=== PATIENT | female | born 1990 | race Caucasian/White ===

== ENCOUNTER 2018-07-10 00:05 | Emergency (ER) | payer SELFPAY ==
[~2018-07-10] VITALS: Ht 160 cm; Wt 65.8 kg
[2018-07-10 00:10] VITALS: BP 150/68
--- NOTE | 2018-07-10 00:10 | NUR ---
TO BED # 12 AMBULATORY
[2018-07-10] MEDS ORDERED: IBUPROFEN 800 MG TAB PO ONE (00:25)
--- NOTE | 2018-07-10 00:30 | NUR ---
28 YO F BIB SELF AND PRESENTS TO ED C/O 09/04 LOWER ABDOMINAL TENDERNESS X1 DAY. DENIES NVD OR CHANGE IN BOWEL HABITS. DENIES URINARY BURNING. -- ABD SOFT, FLAT, TENDER TO TOUCH. BOWEL SOUNDS PRESENT, ACTIVE. -- SKIN PINK, DRY, WARM. BREATHING EVEN, UNLABORED. -- LMP: 06/18/18 PMH-- DENIES RX-- TYLENOL FOR PAIN AT 1800
--- NOTE | 2018-07-10 01:18 | NUR ---
Ultrasound at bedside.
--- NOTE | 2018-07-10 01:19 | NUR ---
PT TAKEN TO ULTRASOUND
--- NOTE | 2018-07-10 01:32 | NUR ---
PT RETURNED FROM US.
[2018-07-10 02:16] VITALS: BP 105/67
== END 2018-07-10 02:16 | disposition home or self-care (01) ==
LOC: MED 00:05
DX: N83.201 Unspecified ovarian cyst, right side (principal); R03.0 Elevated blood-pressure reading, without diagnosis of hypertension
CPT/HCPCS: 76856; 81002; 81025; 99284

== ENCOUNTER 2021-05-02 07:18 | Emergency (ER) | payer MEDICAID ==
[~2021-05-02] VITALS: Ht 160 cm; Wt 77.1 kg
[2021-05-02 07:23] VITALS: BP 101/70
--- NOTE | 2021-05-02 07:28 | NUR ---
PT AMBULATED TO ER BED 5, PT GIVEN GOWN AND BLANKET
--- NOTE | 2021-05-02 08:16 | NUR ---
US AT PATIENT BEDSIDE.
[2021-05-02] MEDS: ACETAMINOPHEN 325 MG TAB PO ONE (08:37)
[2021-05-02] MEDS: FAMOTIDINE 20 MG TAB PO ONE (08:37)
--- NOTE | 2021-05-02 08:43 | NUR ---
LAB AT BEDSIDE FOR BLOOD DRAW
[2021-05-02 09:15] LABS: BASOPHILS % (AUTO) 0.7 % (0.0-2.0); EOSINOPHILS # (AUTO) 0.1 K/uL (0-0.4); EOSINOPHILS % (AUTO) 1.7 % (0.0-4.0); HEMATOCRIT 37.1 % (36-48); HEMOGLOBIN 12.6 g/dL (12.0-16.0); LYMPHOCYTES # (AUTO) 1.5 K/uL (2.5-16.5); MEAN CORPUSCULAR HEMOGLOBIN 30 pg (27-31); MEAN CORPUSCULAR HGB CONC 34 g/dL (33-37); MEAN CORPUSCULAR VOLUME 88.4 fL (80-94); MONOCYTES # (AUTO) 0.4 K/uL (0.8-1.0); NEUTROPHILS # (AUTO) 2.9 K/uL (1.8-7.7); NEUTROPHILS % (AUTO) 58.6 % (42.2-75.2); PLATELET COUNT (AUTO) 225 K/uL (140-450); RED CELL DISTRIBUTION WIDTH 13.2 % (11.6-13.7)
[2021-05-02 09:23] LABS: ALBUMIN 3.7 g/dL (3.4-5.0); ANION GAP 11.5 (8-16); CARBON DIOXIDE 26.1 mmol/L (21-32); CREATININE 0.6 mg/dL (0.6-1.3); POTASSIUM 3.6 mmol/L (3.5-5.1); TOTAL BILIRUBIN 0.2 mg/dL (0.0-1.0)
[2021-05-02] MEDS ORDERED: ACET-1195 PO (09:47)
[2021-05-02] MEDS ORDERED: FAMO-92 PO (09:47)
[2021-05-02 10:00] VITALS: BP 110/66
--- NOTE | 2021-05-02 10:00 | NUR ---
Patient discharged with v/s stable. Written and verbal after care instructions ABOUT GASTRITIS AND BILIARY COLIC given and explained. Patient alert, oriented and verbalized understanding of instructions. Ambulatory with steady gait. All questions addressed prior to discharge. ID band removed. Patient advised to follow up with PMD. Rx of ACETAMINOPHEN AND PEPCID given.
--- NOTE | 2021-05-02 10:01 | NUR ---
The patient's care was reviewed and supervised by Ayesha Thrasher RN.
== END 2021-05-02 10:00 | disposition home or self-care (01) ==
LOC: MED 07:18
DX: K80.20 Calculus of gallbladder without cholecystitis without obstruction (principal); K29.70 Gastritis, unspecified, without bleeding; M54.9 Dorsalgia, unspecified
CPT/HCPCS: 36415; 76705; 80053; 81002; 81025; 83690; 85025; 99284; Q0092

== ENCOUNTER 2021-07-21 20:12 | Emergency (ER) | payer MEDICAID, OTHER ==
[~2021-07-21] VITALS: Ht 160 cm; Wt 77.1 kg
[~2021-07-21 20:12] MED LIST: ACET-1195 PO; FAMO-92 PO
[2021-07-21 20:19] VITALS: BP 130/82
--- NOTE | 2021-07-21 20:26 | NUR ---
PT TAKEN TO BED 11
--- NOTE | 2021-07-21 20:56 | NUR ---
MD HEMPHILL AT BEDSIDE
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
--- NOTE | 2021-07-21 21:24 | NUR ---
PT RETURNED FROM XRAY
[2021-07-21] MEDS ORDERED: NAPR-1704 PO (21:55)
[2021-07-21] MEDS ORDERED: LID5T TP (21:55)
[2021-07-21 22:52] VITALS: BP 126/78
--- NOTE | 2021-07-21 22:53 | NUR ---
Patient discharged with v/s stable. Written and verbal after care instructions given and explained. Patient alert, oriented and verbalized understanding of instructions. Ambulatory with steady gait. All questions addressed prior to discharge. ID band removed. Patient advised to follow up with PMD. Rx of lidoderm 5% patch and Naprosyn given. Patient educated on indication of medication including possible reaction and side effects. Opportunity to ask questions provided and answered. VSS, A/OX4, UNLABORED BREATHING, AMBULATORY, AND CALM DEMEANOR.
== END 2021-07-21 22:45 | disposition home or self-care (01) ==
LOC: MED 20:12
DX: S39.012A Strain of muscle, fascia and tendon of lower back, initial encounter (principal); R10.9 Unspecified abdominal pain; Z79.899 Other long term (current) drug therapy; W22.8XXA Striking against or struck by other objects, initial encounter; Y93.89 Activity, other specified; Y92.89 Other specified places as the place of occurrence of the external cause; Y99.0 Civilian activity done for income or pay
CPT/HCPCS: 72110; 81002; 81025; 99283

== ENCOUNTER 2022-02-23 12:59 | Emergency (ER) | payer MEDICAID, OTHER ==
[~2022-02-23] VITALS: Ht 160 cm; Wt 79.8 kg
[~2022-02-23 12:59] MED LIST changes: +LID5T TP; +NAPR-1704 PO
[2022-02-23 13:11] VITALS: BP 117/76
--- NOTE | 2022-02-23 13:15 | NUR ---
Patient ambulated to bed 08 with steady/even gait.
--- NOTE | 2022-02-23 13:17 | NUR ---
31 Y/O FEMALE C/O L EAR PAIN X4 DAYS. PT REPORTS HAVING SORE THROAT/EARACHE ON SUNDAY BUT NOW ONLY C/O LEFT EAR PAIN. PT STATES EAR PAIN CAUSING LEFT JAW PAIN. REPORTS SON IS ALSO SICK AT HOME. PT TOOK COVID TEST ON SUNDAY WHICH WAS NEGATIVE. PT TOOK "XL3" AUSTRIAN MEDICATION WHICH PROVIDED RELIEF. DENIES EAR DRAINAGE, FEVER, CHILLS, COUGH, BLURRY VISION, DIZZINESS, HEADACHE. BED LOCKED IN LOWEST POSITION, SIDE RAILS X 1. PMH:DENIES NKDA
--- NOTE | 2022-02-23 13:17 | NUR ---
LARISA Moody evaluating patient at bedside.
--- NOTE | 2022-02-23 13:17 | NUR ---
Note kristen in EDM - 02/23/22 at 1326 by MARKY 31 Y/O FEMALE C/O L EARPAIN XX4 DAYS. PT REPORTS HAVING SORE THROAT/EARACHE ON SUNDAY BUT NOW ONLY C/O EARPAIN. REPORTS SON IS ALSO SICK AT HOME. PT TOOK COVID TEST ON SUNDAY WHICH WAS NEGATIVE. PT TOOK "XL3" [place]IAN MEDICATION WHICH PROVIDED RELIEF. PMH:FABIOLA BROWN
[2022-02-23] MEDS ORDERED: PRED20TA5 PO (13:23)
--- NOTE | 2022-02-23 13:32 | NUR ---
Patient discharged with v/s stable. Written and verbal after care instructions given and explained for Eustachian Tube Dysfunction, Upper Respiratory Infection (Adult), Sore Throat. Patient alert, oriented and verbalized understanding of instructions. Ambulatory with steady gait. All questions addressed prior to discharge. ID band removed. Patient advised to follow up with PMD. Rx of Prednisone given. Patient educated on indication of medication including possible reaction and side effects. Opportunity to ask questions provided and answered. Off work note given to patient.
--- NOTE | 2022-02-23 13:32 | NUR ---
Note kristen in EDM - 02/23/22 at 1336 by MARKY Patient discharged with v/s stable. Written and verbal after care instructions given and explained for Eustachian Tube Dysfunction, Upper Respiratory Infection (Adult), Sore Throat. Patient verbalized understanding. Ambulatory with steady gait. All questions addressed prior to discharge. Advised to follow up with PMD. Work note given to patient.
== END 2022-02-23 13:32 | disposition home or self-care (01) ==
LOC: MED 12:59
DX: H69.92 Unspecified Eustachian tube disorder, left ear (principal); R09.81 Nasal congestion; Z79.899 Other long term (current) drug therapy
CPT/HCPCS: 99283